=== PATIENT | female | born 1960 | race Caucasian/White ===

== ENCOUNTER → 2018-07-30 | Outpatient (CLI) | payer BC | LOC: M WUC 10:44 | DX: M25.531 Pain in right wrist (principal) | CPT/HCPCS: 73110 ==

== ENCOUNTER 2019-06-11 14:13 | Day surgery (SDC) | payer BC ==
[~2019-06-11] VITALS: Ht 162.6 cm; Wt 69.4 kg
[~2019-06-11 14:13] MED LIST: FAMO20TA PO; LIDOCAINE 1% MDV 20ML VIAL SQ PRN; LR 1,000 ML IV ONE; PANT40TA3 PO; PHENAZOPYRIDINE 100 MG TAB PO ONE; VASOPRESSIN INJ 20 UNITS/ML VIAL As Ordered ONE
[2019-06-11] MEDS ORDERED: PROPOFOL 200 MG/20 ML VIAL As Ordered ONE (15:21)
[2019-06-11] MEDS ORDERED: LIDOCAINE 2% INJ 100 MG/5 ML SDV (FOR ANES.) As Ordered ONE (15:21)
[2019-06-11] MEDS ORDERED: MIDAZOLAM INJ 2 MG/2 ML VIAL (J2250) As Ordered ONE (15:21)
[2019-06-11] MEDS ORDERED: fentaNYL 100 MCG/2 ML INJECTION (J3010) As Ordered ONE ×3 (15:22→19:05)
[2019-06-11] MEDS ORDERED: PHENAZOPYRIDINE 100 MG TAB PO ONE (15:30)
[2019-06-11] MEDS ORDERED: ROCURONIUM BROMIDE 50 MG/5 ML VIAL As Ordered ONE (15:47)
[2019-06-11] MEDS ORDERED: KETOROLAC 60 MG/2 ML VIAL (J1885) As Ordered ONE (17:03)
[2019-06-11] MEDS ORDERED: ONDANSETRON 4MG/2ML VIAL (J2405) As Ordered ONE (17:03)
[2019-06-11] MEDS ORDERED: dexameTHASONE 4 MG/ML 1ML VIAL (J1100) As Ordered ONE (17:03)
[2019-06-11] MEDS ORDERED: METOCLOPRAMIDE INJ 10MG/2ML VIAL (J2765) As Ordered ONE (17:03)
[2019-06-11] MEDS ORDERED: ACETAMINOPHEN 1000MG 100ML IV BTL (OFIRMEV) (J0131 PER 10MG) As Ordered ONE (17:05)
[2019-06-11] MEDS ORDERED: ePHEDrine SULFATE 25 MG/5 ML(5MG/ML) SYRINGE As Ordered ONE (18:24)
[2019-06-11] MEDS: fentaNYL 100 MCG/2 ML INJECTION (J3010) IV PRN ×4 (19:06→19:39)
[2019-06-11] MEDS ORDERED: PERCOCET 5MG/325MG TAB As Ordered ONE (19:10)
[2019-06-11] MEDS ORDERED: LR 1,000 ML IV SCH (19:15)
[2019-06-11] MEDS ORDERED: PERCOCET 5MG/325MG TAB PO PRN (19:15)
[2019-06-11] MEDS ORDERED: NORCO, ANEXSIA 5/325MG TABLET (HYDROcodone/ACETAMINOPHEN) PO PRN (19:15)
[2019-06-11] MEDS: LR 1,000 ML IV SCH (19:15)
--- NOTE | 2019-06-11 19:22 | ECGEPIP ---
[facility] Test Date: 2019-06-11 Pat Name: LITO DEUTSCH Department: Room: - Gender: Female [employer]: [facility] : 1960 Requested By: John Canchola Order Number: [id number] Reading MD: Binu Sloan Measurements Intervals [place] Rate: 57 P: 68 DE: 148 QRS: QRSD: 91 T: 61 QT: 409 QTc: 400 Interpretive Statements Sinus bradycardia. LA conduction disturbance? Extreme negative axis - left anterior hemiblock Could not rule out prior lateral infarction Nonspecific ST/T-wave abnormalities. No prior tracing for comparison. Clincal correlation advised Electronically Signed on 06-11-2019 19:21:41 EDT by Binu Sloan
[2019-06-11] MEDS ORDERED: oxyCODONE 5MG TAB PO PRN (19:30)
[2019-06-11] MEDS ORDERED: MORPHINE 4 MG/ML 1ML VIAL/SYRINGE (J2270) As Ordered ONE (20:09)
[2019-06-11] MEDS ORDERED: MORPHINE 4 MG/ML 1ML VIAL/SYRINGE (J2270) IV PRN (20:30)
[2019-06-11 21:30] VITALS: BP 114/65
[2019-06-11 22:35] VITALS: BP 113/67
[2019-06-11 23:35] VITALS: BP 108/62
[2019-06-12 00:30] VITALS: BP 111/66
[2019-06-12 02:00] VITALS: BP 112/69
[2019-06-12] MEDS ORDERED: IBUPROFEN 600 MG TAB PO PRN (03:00)
[2019-06-12] MEDS: LR 1,000 ML IV SCH (03:15)
[2019-06-12 06:00] VITALS: BP 106/63
[2019-06-12] MEDS ORDERED: HYDR-3713 PO (09:08)
[2019-06-12] MEDS ORDERED: IBUP-1022 PO (09:08)
--- NOTE | 2019-06-15 09:00 | RO ---
DATE OF SURGERY: 06/11/2019 PREOPERATIVE DIAGNOSIS/INDICATION FOR SURGERY: Symptomatic prolapse. POSTOPERATIVE DIAGNOSIS: Symptomatic prolapse. PROCEDURE: Sacrospinous suspension with anterior and posterior repair of perineorrhaphy with cystourethroscopy. SURGEON: Terri Alba MD. HATCHERY HELPER: None. ANESTHESIA: General endotracheal anesthesia. SPECIMEN: Only vaginal epithelium. BRIEF DESCRIPTION OF PROCEDURE AND FINDINGS: Fanny was brought to the operating room where sufficient general anesthesia was induced and she was prepped, draped and positioned in the usual sterile fashion. The bladder was emptied. The patient had taken her Pyridium preoperatively to facilitate the cystourethroscopic evaluation of the ureter function. The scar from the patient's previous hysterectomy was readily identified. Diluted vasopressin was injected and a butch shaped area of tissue, especially extending over the patient's fairly significant cystocele, was removed. Allis' were used to sort of identify the right location and bring those up to the sacrospinous ligament and confirm appropriate dissection. We then removed that butch shaped area of tissue, dissected back, and did an anterior repair and correction of an enterocele as we working now so as to keep those tissues from falling into the field of dissection. I used #2-0 Vicryl for that with pursestring sutures for the enterocele and side to side plication for the cystocele. We then dissected posteriorly and it worked out laterally along the patient's right side to the right sacrospinous ligament. We were able to clear that fairly readily and then, using AnchorSure anchors, each loaded with two #2-0 Maxon. We placed those two anchors into the ligament being careful to work medial from the spine, so as to void injury of our adjacent nerves. Having placed four sutures in this fashion to support the vagina, we then used a Rutledge needle to bring out each of the sutures after identifying carefully to make sure they slid appropriately and then we brought them out, two towards the front and two int he back. Again, using an Allis' to bring the issues up to that target spine so that we had an appropriate sense of the depth we would be able to achieve and we did not over shorten the vagina. We then, having brought those sutures out, passed on throw each, keeping them tight on tension, of course holding each pedicle out laterally with a hemostat. We then did cystourethroscopy and this confirmed that the anterior repair had bulged up that cystocele in towards the bladder and supported it, and we saw normal jets of urine bilaterally and absence of any sutures in the bladder. We then drained the bladder back down and completed the rest of throws on the sacrospinous suspension, and we of course closed the cuff, and we had actually closed the cuff side to side prior to tying those sutures down, so I apologize for being out of order with this, but we used #0 Vicryl to close the vaginal cuff and did that prior to tying the Maxon sutures and prior to the cystoscopy. We did not cut that #0 Vicryl suture because I am always concerned that I might cut one of the Maxon, so we had that tied there in the middle and then tied down those four sutures, of course checking before the final throws that we had not kinked any ureters. We had that enterocele corrected, we had the vaginal apical support in place, and we had that anterior correction already done and some posterior correction, but we still needed a perineorrhaphy and a proximal posterior repair, so we removed an inverted triangle of tissue from the perineum, dissected up below the vaginal epithelium posteriorly, and exposed the rectovaginal septum, which did have a slightly right posterior defect. We plicated posteriorly for the posterior repair and also supported the perineal body using #2-0 for the posterior repair and #0 for the perineal support and reattachment of the rectovaginal septum to the perineal body. We then closed that epithelium with #2-0 Vicryl and a couple of segments of running locked stitch with good approximation and hemostasis achieved. The procedure was then ended. Rectal exam confirmed absence of injury and the bladder was drained at the end of the case with again the same type of urine noted and there was good hemostasis. ESTIMATED BLOOD LOSS FOR THE CASE: About 50 mL. FLUID REPLACEMENT: Crystalloid. COMPLICATIONS: None. CONDITION AND DISPOSITION: Fanny tolerated the procedure well and was recovering in the recovery room in good condition.
== END 2019-06-12 09:32 | disposition home or self-care (01) ==
LOC: M SDC 14:13 → M MS5PR 21:20 → M SDC 06-12 09:32
PROVIDERS: ATTEND Obstetrics & Gynecology
DX: N81.89 Other female genital prolapse (principal); K21.9 Gastro-esophageal reflux disease without esophagitis; Z79.899 Other long term (current) drug therapy; Z87.891 Personal history of nicotine dependence
CPT/HCPCS: 57260; 57282; 88302; 93005; C1713; J0131; J0690; J1100; J1885; J2250; J2270; J2405; J2765; J3010

== ENCOUNTER → 2019-08-27 | Outpatient (CLI) | payer BC ==
[~2019-08-27] MED LIST changes: +CYCL5TAB; +HYDR-3713 PO; +IBUP-1022 PO; -LIDOCAINE 1% MDV 20ML VIAL SQ PRN; -LR 1,000 ML IV ONE; +METH4PACK; -PHENAZOPYRIDINE 100 MG TAB PO ONE; -VASOPRESSIN INJ 20 UNITS/ML VIAL As Ordered ONE
--- NOTE | 2019-08-27 16:01 | REP ---
Lumbar spine series: Five views. History: Low back pain. Findings: There is a rudimentary disc space at the S1-S2 level. S1 is partially lumbarized. Lumbar vertebral body heights are preserved. There is minimal old wedging at the T12 vertebral body on lateral film. There is a Schmorl's node in the inferior endplate of the T12 vertebral body. Degenerative discogenic spurring is seen at T11-12 and T12-L1. There is mild disc space narrowing at L3-4. Alignment is normal. There is no evidence of spondylolysis or spondylolisthesis. There is mild facet hypertrophy and sclerosis bilaterally at L4-5. Sacrum is intact. SI joints are unremarkable. Psoas margins are symmetric. There is some vascular calcification. Impression: Mild degenerative spondylosis changes. Mild old wedging at the T12 vertebral body level. Electronically Signed by Michael Barriga MD 08/27/2019 04:33 P
== END ==
LOC: M WUC 11:04
PROVIDERS: ATTEND Nurse Practitioner Family
DX: M54.5 Low back pain (principal)

== ENCOUNTER 2019-08-30 10:43 | Emergency (ER) | payer BC ==
[~2019-08-30] VITALS: Ht 165.1 cm; Wt 69.6 kg
[~2019-08-30 10:43] MED LIST changes: -CYCL5TAB; -METH4PACK
[2019-08-30] MEDS ORDERED: METH4PACK (10:49)
[2019-08-30] MEDS ORDERED: CYCL5TAB (10:49)
[2019-08-30] MEDS ORDERED: KETOROLAC 30 MG/ML VIAL (J1885) IV ONE (11:15)
--- NOTE | 2019-08-30 13:08 | REPVR ---
PROCEDURE INFORMATION: Exam: MR Lumbar Spine Without Contrast. Exam date and time: 08/30/2019 11:01 AM Clinical history: 58 years old, female; Low back pain; Additional info: Back pain urinary incontinence R/O causda equina TECHNIQUE: Imaging protocol: Multiplanar magnetic resonance images of the lumbar spine without intravenous contrast. COMPARISON: CR SPINE LS COMPLETE 08/27/2019 11:13 AM FINDINGS: Vertebrae: There is lumbarization of the S1 vertebral body with formation of a transitional vertebra. The lowermost well visualized disc will be labeled as S1-S2 . The lumbar vertebral bodies are normal in height , signal intensity and alignment.No acute fracture or dislocation is seen.There is a normal proportion of hematopoietic bone marrow and fat for this patient's age.There is no evidence of abnormal bone marrow signal intensity to suggest contusion or infection. Spinal epidural space: There is no evidence of epidural masses or hemorrhage. Spinal cord: The conus medullaris is normal. The cauda equina nerve roots demonstrate no crowding or displacement. T12-L1: Moderate disc space narrowing with small Schmorl's nodes.There is a mild diffuse posterior bulge causing mild effacement of the thecal sac.There is no significant spinal canal or foraminal stenosis. L1-L2: There is no significant degenerative disc herniation.The spinal canal and neural foramina are patent and without significant stenosis. L2-L3: There is no significant degenerative disc herniation.The spinal canal and neural foramina are patent and without significant stenosis. L3-L4: Small diffuse posterior herniation.The facet joints demonstrate moderate degenerative narrowing and sclerosis. There is thickening of the ligamentum flavum.There is moderate spinal canal stenosis, with an AP canal dimension of 8 mm. There is mild bilateral foraminal stenosis. L4-L5: Small diffuse posterior herniation.The facet joints demonstrate moderate degenerative narrowing and sclerosis. There is thickening of the ligamentum flavum.There is moderate spinal canal stenosis, with an AP canal dimension of 8 mm. There is mild bilateral foraminal stenosis. L5-S1: There is a mild diffuse posterior bulge causing mild effacement of the thecal sac. The facet joints demonstrate moderate degenerative narrowing and sclerosis. There is no evidence of spinal canal narrowing. There is mild bilateral foraminal stenosis. Soft tissues: The prevertebral soft tissues appear normal. IMPRESSION: MRI of the lumbar spine reveals multilevel degenerative spondylitic changes and degenerative disc disease as described above.There is lumbarization of the S1 vertebral body with formation of a transitional vertebra. The lowermost well visualized disc will be labeled as S1-S2 . There is no evidence for cauda equina syndrome. Electronically signed by: Abraham Rodríguez On 08/30/2019 13:07:39 PM
[2019-08-30 13:59] VITALS: BP 125/73
== END 2019-08-30 14:02 | disposition home or self-care (01) ==
LOC: M ED 10:43
DX: M51.26 Other intervertebral disc displacement, lumbar region (principal); M51.27 Other intervertebral disc displacement, lumbosacral region; G89.29 Other chronic pain; M54.9 Dorsalgia, unspecified; Z79.899 Other long term (current) drug therapy
CPT/HCPCS: 72148; 81001; 87086; 96374; 96375; 99284; J1885; J3360

== ENCOUNTER → 2020-05-24 | Outpatient (CLI) | payer BC ==
[~2020-05-24] MED LIST changes: +CYCL5TAB; +METH4PACK
--- NOTE | 2020-05-24 09:57 | REP ---
Clinical: Lower back pain. Technique: AP, lateral, and flexion/extension. Comparison: 08/27/2019 Findings: Orthopedic fixation at the L5-S1 level. Alignment and lordosis maintained. Moderate multilevel degenerative changes remain stable. No acute fracture / compression injury or subluxation. Chronic compression deformity at T12 again noted. Impression: Stable examination. Electronically Signed by Nahun Franks MD 05/24/2020 09:48 A
== END ==
LOC: M WUC 09:19
PROVIDERS: ATTEND Physician Assistant
DX: M54.5 Low back pain (principal); Z98.890 Other specified postprocedural states

== ENCOUNTER → 2022-09-06 | Outpatient (CLI) | payer BC ==
[~2022-09-06] MED LIST changes: +PANT40TA29 PO; -PANT40TA3 PO
[2022-09-06 21:19] LABS: HEMATOCRIT 37.9 % (36.0-47.0); HEMOGLOBIN 12.2 g/dl (12.0-15.5); MEAN CORPUSCULAR HEMOGLOBIN 30.3 pg (27.0-33.0); MEAN CORPUSCULAR HGB CONC 32.2 g/dl (32.0-36.5); PLATELET COUNT, AUTOMATED 390 10^3/uL (150-450); RED BLOOD COUNT 4.03 10^6/uL (4.00-5.40); WHITE BLOOD COUNT 6.5 10^3/uL (4.0-10.0)
[2022-09-06 21:23] LABS: ALT/SGPT 31 U/L (12-78); BILIRUBIN,TOTAL 0.4 MG/DL (0.2-1.0); BLOOD UREA NITROGEN 15 MG/DL (7-18); CALCIUM LEVEL 9.2 MG/DL (8.8-10.2); CARBON DIOXIDE LEVEL 27 MEQ/L (21-32); CHLORIDE LEVEL 105 MEQ/L (98-107); CREATININE FOR GFR 0.99 MG/DL (0.55-1.30); GLOMERULAR FILTRATION RATE > 60.0 (>45); GLUCOSE, FASTING 104 MG/DL (70-100); POTASSIUM SERUM 4.6 MEQ/L (3.5-5.1); SODIUM LEVEL 138 MEQ/L (136-145); TOTAL PROTEIN 7.1 GM/DL (6.4-8.2)
[2022-09-06 21:50] LABS: ERYTHROCYTE SEDIMENTATION RATE 6 mm/hr (0-30)
== END ==
LOC: M WUC 15:21
DX: M05.9 Rheumatoid arthritis with rheumatoid factor, unspecified (principal); Z79.899 Other long term (current) drug therapy

== ENCOUNTER → 2022-09-06 | Outpatient (CLI) | payer BC | LOC: M WUC 15:25 | DX: Z01.810 Encounter for preprocedural cardiovascular examination (principal); G56.00 Carpal tunnel syndrome, unspecified upper limb; Z98.1 Arthrodesis status ==

== ENCOUNTER → 2024-06-18 | Outpatient (CLI) | payer BC | LOC: M WUC 14:11 | PROVIDERS: ATTEND Student in an Organized Health Care Education/Training Program | DX: M51.36 Other intervertebral disc degeneration, lumbar region (principal) ==